=== PATIENT | male | born 1970 | race Caucasian/White ===

== ENCOUNTER → 2017-08-21 | Outpatient (CLI) | payer OTHER ==
--- NOTE | 2017-08-21 15:22 | Diagnostic Imaging Report ---
TECHNIQUE: Magnetic resonance imaging of the LEFT KNEE was performed WITHOUT injected contrast. HISTORY: Knee pain COMPARISON: None available. FINDINGS: LIGAMENTS AND TENDONS: ACL: Intact PCL: Intact Collateral ligaments: Intact Iliotibial band: Unremarkable Popliteal tendon: Intact Extensor mechanism: Intact JOINT: Menisci: Medial: Horizontal tear posterior horn Lateral: Intact Articular Cartilage: Medial Compartment: No focal defect. Lateral Compartment: No focal defect. Patellofemoral Compartment: No focal defect. Joint Fluid: Trace effusion and Howard's cyst. BONE: No focal or infiltrative bone marrow replacing abnormality. No acute fracture. SOFT TISSUES: Otherwise, unremarkable. IMPRESSION: Medial meniscus horizontal tear posterior horn. Signed by: Dr. Geronimo Santana M.D. on 08/21/2017 3:19 PM
== END ==
LOC: MRI 13:15
PROVIDERS: ATTEND Specialist
DX: M25.562 Pain in left knee (principal)

== ENCOUNTER → 2017-10-04 | Day surgery (SDC) | payer OTHER ==
[~2017-10-04] MED LIST: BUPIVACAINE 0.5%/EPI 30 ML SDV INJ ONE; CEFAZOLIN SOD 2 GM/D5W 50ML 50 ML IV ONE; DESFLURANE 240 ML BTL INH ONE; DEXAMETHASONE SOD PHOS INJ 4 MG/ML VIAL ONE; FENTANYL CITRATE/PF 100MCG/2 ML INJ ONE; KETOROLAC TROMETHAMINE 30 MG/ML VIAL ONE; LIDOCAINE HCL 2% LOCAL INJ 5 ML SDV VIAL INJ ONE; MIDAZOLAM HCL 2 MG/2 ML VIAL ONE; NAPROXEN250 MG PO; ONDANSETRON HCL INJ 2 MG/ML VIAL ONE; PROPOFOL IV EMULSION 10 MG/ML 20 ML VIAL ONE
[2017-10-04 12:21] VITALS: BP 136/91
--- NOTE | 2017-10-10 13:24 | Operative Report ---
DATE OF PROCEDURE: October 04, 2017 PREOPERATIVE DIAGNOSES 1. Left knee medial meniscus tear. 2. Left knee degenerative joint disease of the knee. POSTOPERATIVE DIAGNOSES 1. Left knee medial meniscus tear. 2. Left knee lateral meniscus tear. 3. Left knee degenerative joint disease of the knee as well as a medial shelf plica. PROCEDURES PERFORMED 1. Left knee examination under anesthesia. 2. Left knee arthroscopy. 3. Left knee partial medial meniscectomy. 4. Left knee partial lateral meniscectomy. 5. Left knee chondroplasty of the patella, the trochlea, the medial femoral condyle, the medial tibial plateau, and the lateral tibial plateau. 6. Resection of a medial shelf plica. CAPACITOR TESTER: None. ANESTHESIA: General endotracheal intubation anesthesia. IV FLUIDS: As per the anesthesia record. DESCRIPTION OF PROCEDURE: Mr. Bob was taken to the operating room and placed in the supine position on the operating table. Following induction of general anesthesia as well as endotracheal intubation, the patient's left lower extremity was examined under anesthesia. He was found to have a mild effusion within the knee joint but an otherwise ligamentously stable knee. The patient's left lower extremity was prepped and draped in the standard surgical fashion. A 2-portal technique was used to provide this patient arthroscopic evaluation of the knee joint. Examination of the suprapatellar pouch, medial and lateral gutters found no evidence of loose bodies. There was, however, a medial shelf plica interdigitating between the patellar and trochlear surfaces. The scope was advanced to the medial compartment. Examination of the medial compartment demonstrated a torn and macerated posterior horn of the medial meniscus. A combination of biting forceps and motorized shaver were used resect the torn portion of the meniscus. There was also chondromalacia of the medial femoral condyle and medial tibial plateau. A chondroplasty of each of these surfaces was performed at this time. The scope was then advanced into the intercondylar notch. Anterior cruciate ligament was identified and found to be intact. Scope was then advanced into the lateral compartment, and there was a small radial tear of the lateral meniscus. There was also chondromalacia of the tibial plateau. A combination of biting forceps and motorized shaver were used to resect the torn portion lateral meniscus. A chondroplasty of the lateral tibial plateau was performed at this time. The scope was then advanced to the suprapatellar pouch, and the medial shelf plica was resected. Chondroplasties of the patellar and trochlea were performed at this time. The knee was then deflated of its sterile normal saline. Each of the portal sites were closed using 4-0 nylon suture. Portal sites as well as the knee itself were injected with 0.5% Marcaine with epinephrine. Sterile dressings were applied. The patient was awakened and taken to the postanesthesia care unit in stable condition. Job#: [id number]
== END | disposition home or self-care (01) ==
LOC: OR 07:26
PROVIDERS: ATTEND Specialist
DX: S83.222A Peripheral tear of medial meniscus, current injury, left knee, initial encounter (principal); M17.12 Unilateral primary osteoarthritis, left knee; M67.52 Plica syndrome, left knee; Z01.810 Encounter for preprocedural cardiovascular examination
CPT/HCPCS: 29875; 29880; 93005; J1100; J1885; J2001; J2250; J2405

== ENCOUNTER → 2018-11-09 | Outpatient (CLI) | payer OTHER ==
[~2018-11-09] MED LIST changes: -BUPIVACAINE 0.5%/EPI 30 ML SDV INJ ONE; -CEFAZOLIN SOD 2 GM/D5W 50ML 50 ML IV ONE; -DESFLURANE 240 ML BTL INH ONE; -DEXAMETHASONE SOD PHOS INJ 4 MG/ML VIAL ONE; -FENTANYL CITRATE/PF 100MCG/2 ML INJ ONE; -KETOROLAC TROMETHAMINE 30 MG/ML VIAL ONE; -LIDOCAINE HCL 2% LOCAL INJ 5 ML SDV VIAL INJ ONE; -MIDAZOLAM HCL 2 MG/2 ML VIAL ONE; -ONDANSETRON HCL INJ 2 MG/ML VIAL ONE; -PROPOFOL IV EMULSION 10 MG/ML 20 ML VIAL ONE
--- NOTE | 2018-11-09 14:57 | Diagnostic Imaging Report ---
TECHNIQUE: Magnetic resonance imaging of the RIGHT ELBOW was performed WITHOUT injected contrast. HISTORY: Pain COMPARISON: None available. FINDINGS: Ligaments and tendons: The medial and lateral collateral ligament complexes are intact. Tendinopathy of the common extensor origin with partial tearing axial image 21 and coronal image 18. The common flexor pronator origin is intact. The biceps and brachialis are intact. The triceps is intact. Ulnar nerve: Normal, and in groove. Bone and bone marrow: No focal or infiltrative bone marrow replacing abnormality. No acute fracture. Articular cartilage: No focal lesions are seen. Soft tissues: Otherwise, unremarkable. IMPRESSION: Common extensor origin tendinopathy with partial tearing Signed by: Dr. Geronimo Santana M.D. on 11/09/2018 2:54 PM
== END ==
LOC: MRI 13:28
PROVIDERS: ATTEND Specialist
DX: M77.8 Other enthesopathies, not elsewhere classified (principal)